=== PATIENT | male | born 1950 | race Caucasian/White ===

== ENCOUNTER 2018-03-11 16:23 | Inpatient (IN) | payer MEDICARE, OTHER ==
[~2018-03-11] VITALS: Ht 177.8 cm; Wt 60.0 kg
[~2018-03-11 16:23] MED LIST: ALBU8.5H8 INH; AZIT500T PO; BUDE10.2 INH; CEFD300C37 PO; FLUT1AER INH; IPRA3AMP NPPB; IPRA4AER INH; LACT1CAP24 PO; PRED10TA PO; VORI200T2 PO
[2018-03-11] MEDS ORDERED: ACETAMINOPHEN 500 MG TABLET ONE (16:51)
[2018-03-11] MEDS ORDERED: ACETAMINOPHEN 500 MG TABLET PO ONE (17:00)
[2018-03-11] MEDS ORDERED: SODIUM CHLORIDE 0.9% 1,000ML IVBOLUS ONE (17:00)
[2018-03-11 17:14] LABS: MEAN CORPUSCULAR HEMOGLOBIN 33.6 pg (27.5-34.5); MEAN CORPUSCULAR HGB CONC 34.2 g/dL (33.2-36.2); MEAN CORPUSCULAR VOLUME 98.3 fL (81-97); MEAN PLATELET VOLUME 9.3 fL (7.4-10.4); PLATELET COUNT 200 x10^3/uL (130-400); RED BLOOD COUNT 4.37 x10^6/uL (4.38-5.82); RED CELL DISTRIBUTION WIDTH 14.7 % (9.4-14.8)
[2018-03-11 17:22] LABS: ALANINE AMINOTRANSFERASE 25 U/L (12-78); ALBUMIN 3.2 g/dL (3.4-5.0); ANION GAP 9 mmol/L (5-15); CALCIUM 8.2 mg/dL (8.5-10.1); CHLORIDE 99 mmol/L (98-107); CREATININE 0.99 mg/dL (0.7-1.3)
[2018-03-11 17:25] LABS: ALKALINE PHOSPHATASE 76 U/L (45-117); BILIRUBIN,TOTAL 2.7 mg/dL (0.2-1.0); TOTAL PROTEIN 7.5 g/dL (6.4-8.2)
[2018-03-11 17:36] LABS: MD YES
[2018-03-11 17:40] LABS: <PLATELET ESTIMATE> ADEQUATE; <PLT MORPHOLOGY> NORMAL PLT MORPH; <RBC MORPHOLOGY> NORMAL; BAND#(MANUAL) 0.51 x10^3/uL; BANDS%(MANUAL) 2 % (0-7); LYMPH#(MANUAL) 1.79 x10^3/uL (1-3.4); LYMPHS% (MANUAL) 7 % (22-44); MONOS#(MANUAL) 1.53 x10^3/uL (0.3-2.7); MONOS% (MANUAL) 6 % (2-9); SEG#(MANUAL) 21.68 x10^3/uL (1.8-6.8); SEGS% (MANUAL) 85 % (42-75)
[2018-03-11] MEDS ORDERED: CEFTRIAXONE PMX 1GM/50ML 50 ML ONE (17:51)
[2018-03-11] MEDS ORDERED: VANCOMYCIN PER PHARMACY MC PRN ×2 (18:00→20:00)
[2018-03-11] MEDS ORDERED: CEFTRIAXONE PMX 1GM/50ML 50 ML IV ONE (18:30)
[2018-03-11 18:38] LABS: MICROSCOPIC INDICATED
[2018-03-11 18:48] LABS: CULTURE INDICATED? NO
[2018-03-11] MEDS ORDERED: VANCOMYCIN 1,200 MG in SODIUM CHLORIDE 0.9% 250 ML IV ONE (19:00)
[2018-03-11] MEDS ORDERED: ALBUTEROL/IPRATROPIUM 2.5MG/0.5MG, 3 ML ONE (19:11)
[2018-03-11] MEDS ORDERED: methylPREDNISolone SOD SUCC 125 MG/2 ML ONE (19:13)
[2018-03-11] MEDS ORDERED: ALBUTEROL/IPRATROPIUM 2.5MG/0.5MG, 3 ML NPPB ONE (19:30)
[2018-03-11] MEDS ORDERED: methylPREDNISolone SOD SUCC 125 MG/2 ML IVP ONE (19:30)
[2018-03-11] MEDS ORDERED: ONDANSETRON ODT 4 MG PO PRN (20:00)
[2018-03-11] MEDS ORDERED: ACETAMINOPHEN 325 MG TABLET PO PRN (20:00)
[2018-03-11] MEDS ORDERED: LABETALOL 5MG/ML, 20ML IVPush PRN (20:00)
[2018-03-11] MEDS ORDERED: GUAIFENESIN/DM 200-20MG, 10ML UDC PO PRN (20:00)
[2018-03-11] MEDS ORDERED: DOCUSATE 100 MG CAPSULE PO PRN (20:00)
[2018-03-11] MEDS ORDERED: ONDANSETRON 2MG/ML, 2ML IVPush PRN (20:00)
[2018-03-11] MEDS ORDERED: ENALAPRILAT 1.25 MG/ML, 2ML IVPush PRN (20:00)
[2018-03-11] MEDS ORDERED: ALBUTEROL/IPRATROPIUM 2.5MG/0.5MG, 3 ML NPPB PRN (21:30)
[2018-03-11] MEDS: ALBUTEROL/IPRATROPIUM 2.5MG/0.5MG, 3 ML NPPB SCH (22:00)
[2018-03-11 22:30] VITALS: BP 103/63
[2018-03-11] MEDS ORDERED: PHARMACOKINETIC MONITORING MC PRN (23:00)
[2018-03-11] MEDS ORDERED: PHARMACOKINETIC CONSULTATION MC ONE (23:00)
[2018-03-11] MEDS: D5%-0.45NACL+KCL 20MEQ 1,000 ML IV SCH (23:33)
[2018-03-11] MEDS: NICOTINE 14MG/24 HR PATCH.TD24 TD SCH ×2 (23:33→23:37)
[2018-03-11] MEDS: FAMOTIDINE 20 MG TABLET PO SCH (23:33)
[2018-03-11] MEDS: PIPERACILLIN/TAZO/PMX 4.5GM 100 ML IV SCH (23:33)
[2018-03-11] MEDS: HEPARIN 5,000 UNITS/ML, 1ML SQ SCH (23:34)
[2018-03-11] MEDS: methylPREDNISolone SOD SUCC 40 MG/ML IVPush SCH (23:34)
[2018-03-12 05:02] VITALS: BP 113/70
[2018-03-12 05:43] LABS: CHLORIDE 111 mmol/L (98-107)
[2018-03-12] MEDS: PIPERACILLIN/TAZO/PMX 4.5GM 100 ML IV SCH ×3 (05:55→19:40)
[2018-03-12 05:58] LABS: MEAN CORPUSCULAR HEMOGLOBIN 33.7 pg (27.5-34.5); MEAN CORPUSCULAR VOLUME 99.2 fL (81-97); MEAN PLATELET VOLUME 9.8 fL (7.4-10.4); PLATELET COUNT 177 x10^3/uL (130-400); RED CELL DISTRIBUTION WIDTH 14.7 % (9.4-14.8)
[2018-03-12 06:16] LABS: ALANINE AMINOTRANSFERASE 18 U/L (12-78); ALBUMIN 2.6 g/dL (3.4-5.0); ALKALINE PHOSPHATASE 64 U/L (45-117); ANION GAP 9 mmol/L (5-15); BILIRUBIN,TOTAL 1.2 mg/dL (0.2-1.0); CALCIUM 8.2 mg/dL (8.5-10.1); CREATININE 0.69 mg/dL (0.7-1.3); TOTAL PROTEIN 6.5 g/dL (6.4-8.2)
[2018-03-12 06:28] LABS: MD YES
[2018-03-12 06:30] LABS: BANDS%(MANUAL) 7 % (0-7); LYMPHS% (MANUAL) 4 % (22-44); MONOS% (MANUAL) 1 % (2-9); SEGS% (MANUAL) 88 % (42-75)
[2018-03-12 06:33] LABS: <PLATELET ESTIMATE> ADEQUATE; <PLT MORPHOLOGY> NORMAL PLT MORPH; <RBC MORPHOLOGY> NORMAL
[2018-03-12] MEDS: ALBUTEROL/IPRATROPIUM 2.5MG/0.5MG, 3 ML NPPB SCH ×4 (08:25→20:00)
[2018-03-12] MEDS: FAMOTIDINE 20 MG TABLET PO SCH ×2 (10:35→21:19)
[2018-03-12] MEDS: methylPREDNISolone SOD SUCC 40 MG/ML IVPush SCH (10:35)
[2018-03-12] MEDS: HEPARIN 5,000 UNITS/ML, 1ML SQ SCH ×2 (10:35→17:12)
[2018-03-12 12:04] VITALS: BP 95/60
[2018-03-12] MEDS: D5%-0.45NACL+KCL 20MEQ 1,000 ML IV SCH (12:09)
[2018-03-12] MEDS ORDERED: POTASSIUM PHOSPHATE 44 MEQ in SODIUM CHLORIDE 0.9% 500 ML IV ONE (16:00)
[2018-03-12] MEDS: INSULIN LISPRO 100 UNITS/ML, PEN SQ-INSULIN SCH ×2 (17:18→21:00)
[2018-03-12 19:22] VITALS: BP 127/76
[2018-03-12] MEDS ORDERED: VANCOMYCIN 1,200 MG in SODIUM CHLORIDE 0.9% 250 ML IV SCH (19:30)
[2018-03-12] MEDS: NICOTINE 14MG/24 HR PATCH.TD24 TD SCH (20:00)
[2018-03-12] MEDS: methylPREDNISolone SOD SUCC 125 MG/2 ML IVPush SCH (21:19)
[2018-03-12] MEDS: VANCOMYCIN PMX 1GM/200ML 200 ML IV SCH (21:19)
[2018-03-12] MEDS: TEMAZEPAM 15 MG CAPSULE PO PRN (23:46)
[2018-03-13 01:20] VITALS: BP 110/62
[2018-03-13] MEDS: HEPARIN 5,000 UNITS/ML, 1ML SQ SCH ×3 (02:00→18:00)
[2018-03-13] MEDS: methylPREDNISolone SOD SUCC 125 MG/2 ML IVPush SCH ×3 (02:09→21:05)
[2018-03-13] MEDS: PIPERACILLIN/TAZO/PMX 4.5GM 100 ML IV SCH ×4 (02:10→19:55)
[2018-03-13 05:10] LABS: MEAN CORPUSCULAR HEMOGLOBIN 33.4 pg (27.5-34.5); MEAN CORPUSCULAR HGB CONC 33.4 g/dL (33.2-36.2); MEAN CORPUSCULAR VOLUME 100.1 fL (81-97); MEAN PLATELET VOLUME 9.8 fL (7.4-10.4); PLATELET COUNT 190 x10^3/uL (130-400); RED BLOOD COUNT 3.86 x10^6/uL (4.38-5.82); RED CELL DISTRIBUTION WIDTH 14.7 % (9.4-14.8)
[2018-03-13 05:22] LABS: ALANINE AMINOTRANSFERASE 24 U/L (12-78); ALBUMIN 2.2 g/dL (3.4-5.0); ANION GAP 9 mmol/L (5-15); CALCIUM 8.7 mg/dL (8.5-10.1); CHLORIDE 111 mmol/L (98-107); CREATININE 0.74 mg/dL (0.7-1.3)
[2018-03-13 05:24] LABS: ALKALINE PHOSPHATASE 60 U/L (45-117); BILIRUBIN,TOTAL 0.4 mg/dL (0.2-1.0); TOTAL PROTEIN 6.1 g/dL (6.4-8.2)
[2018-03-13 05:59] LABS: MD YES
[2018-03-13 06:02] LABS: BANDS%(MANUAL) 14 % (0-7); LYMPHS% (MANUAL) 3 % (22-44); MONOS% (MANUAL) 2 % (2-9); SEGS% (MANUAL) 81 % (42-75)
[2018-03-13 06:03] LABS: <PLATELET ESTIMATE> ADEQUATE; <PLT MORPHOLOGY> NORMAL PLT MORPH; ANISOCYTOSIS 1+
[2018-03-13] MEDS: INSULIN LISPRO 100 UNITS/ML, PEN SQ-INSULIN SCH ×4 (07:42→21:00)
[2018-03-13] MEDS: FAMOTIDINE 20 MG TABLET PO SCH ×2 (07:55→21:06)
[2018-03-13 08:08] VITALS: BP 117/74
[2018-03-13] MEDS: ALBUTEROL/IPRATROPIUM 2.5MG/0.5MG, 3 ML NPPB SCH ×3 (08:30→19:30)
[2018-03-13] MEDS ORDERED: ALBUTEROL/IPRATROPIUM 2.5MG/0.5MG, 3 ML NPPB PRN (10:00)
[2018-03-13 15:45] VITALS: BP 129/80
[2018-03-13] MEDS: NICOTINE 14MG/24 HR PATCH.TD24 TD SCH (20:00)
[2018-03-13 20:29] VITALS: BP 135/78
[2018-03-13] MEDS: VANCOMYCIN PMX 1GM/200ML 200 ML IV SCH (21:05)
[2018-03-13] MEDS: TEMAZEPAM 15 MG CAPSULE PO PRN (21:55)
[2018-03-14 01:37] VITALS: BP 123/71
[2018-03-14] MEDS: HEPARIN 5,000 UNITS/ML, 1ML SQ SCH ×3 (01:44→19:25)
[2018-03-14] MEDS: methylPREDNISolone SOD SUCC 125 MG/2 ML IVPush SCH ×4 (01:44→19:25)
[2018-03-14] MEDS: PIPERACILLIN/TAZO/PMX 4.5GM 100 ML IV SCH ×4 (01:44→21:19)
[2018-03-14 05:54] LABS: ANION GAP 8 mmol/L (5-15); CALCIUM 8.6 mg/dL (8.5-10.1); CHLORIDE 110 mmol/L (98-107)
[2018-03-14 05:55] LABS: CREATININE 0.79 mg/dL (0.7-1.3)
[2018-03-14 05:58] LABS: BASOPHILS % (AUTO) 0 % (0-1); EOSINOPHILS % (AUTO) 0 % (1-7); LYMPHOCYTES # (AUTO) 0.77 x10^3/uL (1-3.4); LYMPHOCYTES % (AUTO) 6 % (22-44); MD NO; MEAN CORPUSCULAR HEMOGLOBIN 33.4 pg (27.5-34.5); MEAN CORPUSCULAR HGB CONC 33.9 g/dL (33.2-36.2); MEAN CORPUSCULAR VOLUME 98.6 fL (81-97); MEAN PLATELET VOLUME 9.5 fL (7.4-10.4); MONOCYTES # (AUTO) 0.34 x10^3/uL (0.2-0.8); MONOCYTES % (AUTO) 3 % (2-9); NEUTROPHILS # (AUTO) 11.89 x10^3/uL (1.8-6.8); NEUTROPHILS % (AUTO) 92 % (42-75); PLATELET COUNT 203 x10^3/uL (130-400); RED BLOOD COUNT 3.63 x10^6/uL (4.38-5.82)
[2018-03-14 06:41] VITALS: BP 127/81
[2018-03-14] MEDS: INSULIN LISPRO 100 UNITS/ML, PEN SQ-INSULIN SCH ×4 (07:00→21:40)
[2018-03-14] MEDS: FAMOTIDINE 20 MG TABLET PO SCH ×2 (08:06→21:19)
[2018-03-14] MEDS ORDERED: VANCOMYCIN PMX 1GM/200ML 200 ML IV SCH ×2 (09:30→21:00)
[2018-03-14] MEDS: ALBUTEROL/IPRATROPIUM 2.5MG/0.5MG, 3 ML NPPB SCH ×4 (09:41→20:00)
[2018-03-14 12:38] VITALS: BP 129/74
[2018-03-14 18:50] VITALS: BP 139/75
[2018-03-14] MEDS: NICOTINE 14MG/24 HR PATCH.TD24 TD SCH ×2 (19:26→19:30)
[2018-03-14] MEDS ORDERED: VANCOMYCIN 1,200 MG in SODIUM CHLORIDE 0.9% 250 ML IV SCH (21:30)
[2018-03-15 00:15] VITALS: BP 132/75
[2018-03-15] MEDS: HEPARIN 5,000 UNITS/ML, 1ML SQ SCH ×3 (02:43→20:57)
[2018-03-15] MEDS: methylPREDNISolone SOD SUCC 125 MG/2 ML IVPush SCH (02:43)
[2018-03-15] MEDS: PIPERACILLIN/TAZO/PMX 4.5GM 100 ML IV SCH ×4 (02:48→20:57)
[2018-03-15 05:00] LABS: BASOPHILS # (AUTO) 0.01 x10^3/uL (0-0.1); BASOPHILS % (AUTO) 0 % (0-1); EOSINOPHILS % (AUTO) 0 % (1-7); LYMPHOCYTES # (AUTO) 0.67 x10^3/uL (1-3.4); LYMPHOCYTES % (AUTO) 6 % (22-44); MD NO; MEAN CORPUSCULAR HEMOGLOBIN 32.8 pg (27.5-34.5); MEAN CORPUSCULAR HGB CONC 33.4 g/dL (33.2-36.2); MEAN CORPUSCULAR VOLUME 98.1 fL (81-97); MEAN PLATELET VOLUME 9.4 fL (7.4-10.4); MONOCYTES # (AUTO) 0.38 x10^3/uL (0.2-0.8); MONOCYTES % (AUTO) 4 % (2-9); NEUTROPHILS # (AUTO) 9.45 x10^3/uL (1.8-6.8); NEUTROPHILS % (AUTO) 90 % (42-75); PLATELET COUNT 226 x10^3/uL (130-400); RED BLOOD COUNT 3.72 x10^6/uL (4.38-5.82); RED CELL DISTRIBUTION WIDTH 14.8 % (9.4-14.8)
[2018-03-15 05:12] LABS: CHLORIDE 105 mmol/L (98-107)
[2018-03-15 05:16] LABS: ANION GAP 8 mmol/L (5-15); CALCIUM 8.7 mg/dL (8.5-10.1); CREATININE 0.73 mg/dL (0.7-1.3)
[2018-03-15] MEDS: INSULIN LISPRO 100 UNITS/ML, PEN SQ-INSULIN SCH ×4 (07:00→20:58)
[2018-03-15 07:40] VITALS: BP 153/85
[2018-03-15] MEDS ORDERED: POTASSIUM CHLORIDE 20 MEQ TAB.ER.PRT PO ONE (09:00)
[2018-03-15] MEDS: ALBUTEROL/IPRATROPIUM 2.5MG/0.5MG, 3 ML NPPB SCH ×4 (09:19→20:00)
[2018-03-15] MEDS: FAMOTIDINE 20 MG TABLET PO SCH ×2 (09:51→20:57)
[2018-03-15] MEDS: ARIPIPRAZOLE 10 MG TABLET PO SCH (14:12)
[2018-03-15 15:12] VITALS: BP 167/94
[2018-03-15] MEDS: VANCOMYCIN 1,200 MG in SODIUM CHLORIDE 0.9% 250 ML IV SCH (18:02)
[2018-03-15 19:29] VITALS: BP 144/91
[2018-03-15] MEDS: NICOTINE 14MG/24 HR PATCH.TD24 TD SCH (20:00)
[2018-03-15] MEDS: TEMAZEPAM 15 MG CAPSULE PO PRN (21:07)
[2018-03-16 01:37] VITALS: BP 126/79
[2018-03-16] MEDS: PIPERACILLIN/TAZO/PMX 4.5GM 100 ML IV SCH ×2 (03:07→08:08)
[2018-03-16] MEDS: HEPARIN 5,000 UNITS/ML, 1ML SQ SCH (05:34)
[2018-03-16] MEDS: VANCOMYCIN 1,200 MG in SODIUM CHLORIDE 0.9% 250 ML IV SCH (05:34)
[2018-03-16 05:44] LABS: MEAN CORPUSCULAR HGB CONC 33.3 g/dL (33.2-36.2); MEAN CORPUSCULAR VOLUME 99.2 fL (81-97); MEAN PLATELET VOLUME 8.9 fL (7.4-10.4); PLATELET COUNT 239 x10^3/uL (130-400); RED BLOOD COUNT 3.61 x10^6/uL (4.38-5.82)
[2018-03-16 06:24] LABS: BASOPHILS # (AUTO) 0.05 x10^3/uL (0-0.1); BASOPHILS % (AUTO) 0 % (0-1); EOSINOPHILS % (AUTO) 0 % (1-7); LYMPHOCYTES # (AUTO) 1.55 x10^3/uL (1-3.4); LYMPHOCYTES % (AUTO) 11 % (22-44); MD SCAN; MONOCYTES # (AUTO) 0.71 x10^3/uL (0.2-0.8); MONOCYTES % (AUTO) 5 % (2-9); NEUTROPHILS # (AUTO) 12.11 x10^3/uL (1.8-6.8); NEUTROPHILS % (AUTO) 84 % (42-75)
[2018-03-16 06:43] VITALS: BP 151/88
[2018-03-16] MEDS: ALBUTEROL/IPRATROPIUM 2.5MG/0.5MG, 3 ML NPPB SCH ×2 (07:00→11:00)
[2018-03-16] MEDS: INSULIN LISPRO 100 UNITS/ML, PEN SQ-INSULIN SCH ×2 (07:00→11:00)
[2018-03-16] MEDS: FAMOTIDINE 20 MG TABLET PO SCH (08:09)
[2018-03-16] MEDS: ARIPIPRAZOLE 10 MG TABLET PO SCH (08:09)
[2018-03-16 12:14] VITALS: BP 144/85
== END 2018-03-16 15:25 | disposition left against medical advice (07) | DRG 871 ==
LOC: ED 20:15 → EDIP 20:49 → 4WST 22:01
PROVIDERS: ADMIT Internal Medicine; ATTEND Internal Medicine
DX: A41.9 Sepsis, unspecified organism (principal); J96.01 Acute respiratory failure with hypoxia; E43 Unspecified severe protein-calorie malnutrition; J18.9 Pneumonia, unspecified organism; J44.1 Chronic obstructive pulmonary disease with (acute) exacerbation; E87.1 Hypo-osmolality and hyponatremia; F23 Brief psychotic disorder; J44.0 Chronic obstructive pulmonary disease with (acute) lower respiratory infection; Z68.1 Body mass index [BMI] 19.9 or less, adult; R65.20 Severe sepsis without septic shock; E83.39 Other disorders of phosphorus metabolism; E86.0 Dehydration; F17.210 Nicotine dependence, cigarettes, uncomplicated; Z53.21 Procedure and treatment not carried out due to patient leaving prior to being seen by health care provider; F31.9 Bipolar disorder, unspecified; G89.4 Chronic pain syndrome; Z77.120 Contact with and (suspected) exposure to mold (toxic); Z99.81 Dependence on supplemental oxygen
CPT/HCPCS: 36415; 36600; 71045; 80048; 80053; 80202; 81001; 82803; 82962; 83605; 83735; 84100; 84145; 85025; 87040; 87070; 87205; 93005; 94640; 96361; 96365; 96366; 96375; J0696; J1644; J2543; J3370; J7620; J2920; J2930; J3480; J7030; J7040; J7050; J7512